=== PATIENT | male | born 1940 | race Caucasian/White ===

== ENCOUNTER 2016-07-15 08:19 | Inpatient (IN) | payer MEDICARE, BC ==
[2016-07-15] MEDS ORDERED: ASPIRIN 81 MG CHEW PO STA (08:29)
[2016-07-15] MEDS ORDERED: NITROGLYCERIN SL TABS 0.4 MG TAB SUBLINGUAL STA ×3 (08:29)
--- NOTE | 2016-07-15 08:34 | ED ---
General Adult HPI - General Chief complaint: Chest Pain Stated complaint: CHEST PAIN HAS Hx Time Seen by Provider: 07/15/16 08:25 Source: patient, family, RN notes reviewed Mode of arrival: ambulatory Limitations: no limitations - History of Present Illness Initial comments: Patient is a pleasant 76-year-old male presenting to the emergency Department with chest discomfort. Onset of symptoms was around 2 AM. Symptoms seemed to worsen around 4 AM. Discomfort is currently rated as a 4/10. Discomfort is described as pressure. Patient does have some associated dyspnea. Patient was nauseated earlier however this has resolved. Patient denies diaphoresis however states he was sweaty earlier. No history of similar symptoms previously however patient does have a cardiac history. No leg pain or swelling. No cough or fever. - Related Data Home Medications Medication Instructions Recorded Confirmed Enalapril [Vasotec] 10 mg PO DAILY 09/26/13 07/15/16 Metoclopramide [Reglan] 5 mg PO TID 09/26/13 07/15/16 Ranitidine HCl [Zantac] 150 mg PO BID 09/26/13 07/15/16 Melatonin 10 mg PO HS 07/15/16 07/15/16 Tadalafil [Cialis] 5 mg PO DAILY 07/15/16 07/15/16 Vit C/E/Zn/Coppr/Lutein/Zeaxan 2 cap PO DAILY 07/15/16 07/15/16 [Preservision Areds 2 Softgel] Allergies Allergy/AdvReac Type Severity Reaction Status Date / Time No Known Allergies Allergy Verified 07/15/16 09:20 Review of Systems ROS Statement: Those systems with pertinent positive or pertinent negative responses have been documented in the HPI. ROS Other: All systems not noted in ROS Statement are negative. Constitutional: Denies: fever Eyes: Denies: eye pain ENT: Denies: ear pain Respiratory: Reports: dyspnea Cardiovascular: Reports: chest pain Endocrine: Denies: fatigue Gastrointestinal: Denies: abdominal pain Genitourinary: Denies: dysuria Musculoskeletal: Denies: back pain Skin: Denies: rash Neurological: Denies: weakness Past Medical History Past Medical History: CVA/TIA, GERD/Reflux, Hypertension, Prostate Disorder History of Any Multi-Drug Resistant Organisms: None Reported Past Surgical History: Appendectomy, Orthopedic Surgery Additional Past Surgical History / Comment(s): teeth extractions Past Psychological History: Depression Smoking Status: Former smoker Past Alcohol Use History: None Reported Past Drug Use History: None Reported General Exam Limitations: no limitations General appearance: alert, in no apparent distress Head exam: Present: atraumatic Eye exam: Present: normal appearance, PERRL ENT exam: Present: normal oropharynx Neck exam: Present: normal inspection Respiratory exam: Present: normal lung sounds bilaterally Cardiovascular Exam: Present: regular rate, normal rhythm GI/Abdominal exam: Present: soft. Absent: distended, tenderness Extremities exam: Present: normal inspection. Absent: pedal edema, calf tenderness Neurological exam: Present: alert Psychiatric exam: Present: normal affect, normal mood Skin exam: Absent: rash Course Vital Signs 07/15/16 07/15/16 07/15/16 08:26 08:32 09:22 Temperature 99.1 F Pulse Rate 84 84 Pulse Rate [ 81 Bilateral Radial] Respiratory 18 15 Rate Blood Pressure 161/68 127/59 O2 Sat by Pulse 94 L 95 Oximetry 07/15/16 09:40 Temperature Pulse Rate 82 Pulse Rate [ Bilateral Radial] Respiratory 18 Rate Blood Pressure 112/54 O2 Sat by Pulse 95 Oximetry EKG Findings - EKG Comments: EKG Findings:: Normal sinus rhythm at 83. Normal intervals. Normal axis. Normal QRS. No acute ST change. Medical Decision Making - Medical Decision Making Patient reevaluated and symptom-free following a glycerin. Patient and family updated on results and plan. Case discussed in detail with Dr. Tirado, who will admit for Dr. Bond. Admission orders written. Consult placed for cardiology. IV heparin started. - Lab Data Result diagrams: 07/15/16 08:46 07/15/16 08:46 Lab Results 07/15/16 07/15/16 07/15/16 Range/Units 08:46 08:46 08:46 WBC 12.2 H (3.8-10.6) k/uL RBC 4.94 (4.30-5.90) m/uL Hgb 14.7 (13.0-17.5) gm/dL Hct 45.3 (39.0-53.0) % MCV 91.6 (80.0-100.0) fL MCH 29.8 (25.0-35.0) pg MCHC 32.5 (31.0-37.0) g/dL RDW 12.9 (11.5-15.5) % Plt Count 252 (150-450) k/uL Neutrophils % 88 % Lymphocytes % 7 % Monocytes % 4 % Eosinophils % 1 % Basophils % 0 % Neutrophils # 10.8 H (1.3-7.7) k/uL Lymphocytes # 0.8 L (1.0-4.8) k/uL Monocytes # 0.4 (0-1.0) k/uL Eosinophils # 0.1 (0-0.7) k/uL Basophils # 0.0 (0-0.2) k/uL PT (9.0-12.0) sec INR (<1.1) APTT (22.0-30.0) sec Sodium 143 (137-145) mmol/L Potassium 3.9 (3.5-5.1) mmol/L Chloride 103 (98-107) mmol/L Carbon Dioxide 26 (22-30) mmol/L Anion Gap 14 mmol/L BUN 18 (9-20) mg/dL Creatinine 1.40 H (0.66-1.25) mg/dL Est GFR (MDRD) Af Amer >60 (>60 ml/min/1.73 sqM) Est GFR (MDRD) Non-Af 50 (>60 ml/min/1.73 sqM) Glucose 156 H (74-99) mg/dL Calcium 9.3 (8.4-10.2) mg/dL Magnesium 1.6 (1.6-2.3) mg/dL Total Bilirubin 0.7 (0.2-1.3) mg/dL AST 26 (17-59) U/L ALT 39 (21-72) U/L Alkaline Phosphatase 81 (38-126) U/L Total Creatine Kinase 132 (55-170) U/L CK-MB (CK-2) 1.9 (0.0-2.4) ng/mL CK-MB (CK-2) Rel Index 1.4 Troponin I <0.012 (0.000-0.034) ng/mL NT-Pro-B Natriuret Pep pg/mL Total Protein 7.0 (6.3-8.2) g/dL Albumin 4.0 (3.5-5.0) g/dL 07/15/16 07/15/16 Range/Units 08:46 08:46 WBC (3.8-10.6) k/uL RBC (4.30-5.90) m/uL Hgb (13.0-17.5) gm/dL Hct (39.0-53.0) % MCV (80.0-100.0) fL MCH (25.0-35.0) pg MCHC (31.0-37.0) g/dL RDW (11.5-15.5) % Plt Count (150-450) k/uL Neutrophils % % Lymphocytes % % Monocytes % % Eosinophils % % Basophils % % Neutrophils # (1.3-7.7) k/uL Lymphocytes # (1.0-4.8) k/uL Monocytes # (0-1.0) k/uL Eosinophils # (0-0.7) k/uL Basophils # (0-0.2) k/uL PT 11.3 (9.0-12.0) sec INR 1.1 (<1.1) APTT 21.7 L (22.0-30.0) sec Sodium (137-145) mmol/L Potassium (3.5-5.1) mmol/L Chloride (98-107) mmol/L Carbon Dioxide (22-30) mmol/L Anion Gap mmol/L BUN (9-20) mg/dL Creatinine (0.66-1.25) mg/dL Est GFR (MDRD) Af Amer (>60 ml/min/1.73 sqM) Est GFR (MDRD) Non-Af (>60 ml/min/1.73 sqM) Glucose (74-99) mg/dL Calcium (8.4-10.2) mg/dL Magnesium (1.6-2.3) mg/dL Total Bilirubin (0.2-1.3) mg/dL AST (17-59) U/L ALT (21-72) U/L Alkaline Phosphatase (38-126) U/L Total Creatine Kinase (55-170) U/L CK-MB (CK-2) (0.0-2.4) ng/mL CK-MB (CK-2) Rel Index Troponin I (0.000-0.034) ng/mL NT-Pro-B Natriuret Pep 72 pg/mL Total Protein (6.3-8.2) g/dL Albumin (3.5-5.0) g/dL - Radiology Data Radiology results: image reviewed (This x-ray shows no acute process) Critical Care Time Critical Care Time: Yes Total Critical Care Time: 31 Disposition Clinical Impression: Unstable angina pectoris Disposition: ADMITTED IP TO THIS HOSP
[2016-07-15 09:06] LABS: Basophils % (A) 0 %; Eosinophils # (A) 0.1 k/uL (0-0.7); Eosinophils % (A) 1 %; HCT 45.3 % (39.0-53.0); HDW 2.71; HGB 14.7 gm/dL (13.0-17.5); Luc # (Auto) 0.07; Luc % (Auto) 1; Lymphocytes # (A) 0.8 k/uL (1.0-4.8); Lymphocytes % (A) 7 %; MCH 29.8 pg (25.0-35.0); MCHC 32.5 g/dL (31.0-37.0); MCV 91.6 fL (80.0-100.0); Mean Platelet Volume 6.4; Monocytes # (A) 0.4 k/uL (0-1.0); Monocytes % (A) 4 %; Neutrophils # (A) 10.8 k/uL (1.3-7.7); Neutrophils % (A) 88 %; RBC 4.94 m/uL (4.30-5.90); RDW 12.9 % (11.5-15.5); WBC 12.2 k/uL (3.8-10.6); WBC (Perox) 12.39
[2016-07-15 09:11] LABS: ALT 39 U/L (21-72); AST 26 U/L (17-59); Alkaline Phosphatase 81 U/L (38-126); Anion Gap 14 mmol/L; Blood Urea Nitrogen 18 mg/dL (9-20); Calcium 9.3 mg/dL (8.4-10.2); Carbon Dioxide 26 mmol/L (22-30); Chloride 103 mmol/L (98-107); Glucose 156 mg/dL (74-99); Magnesium 1.6 mg/dL (1.6-2.3); Non-African American GFR(MDRD) 50 (>60 ml/min/1.73 sqM); Potassium 3.9 mmol/L (3.5-5.1); Sodium 143 mmol/L (137-145); Total Bilirubin 0.7 mg/dL (0.2-1.3)
--- NOTE | 2016-07-15 09:11 | XR ---
EXAMINATION TYPE: XR chest 2V DATE OF EXAM: 07/15/2016 9:04 AM COMPARISON: NONE HISTORY: Shortness of breath TECHNIQUE: Frontal and lateral views of the chest are obtained. FINDINGS: Scattered senescent parenchymal changes noted. Hyperinflation compatible with COPD. No evidence for infiltrate. No evidence for atelectasis. Heart size is stable. Mediastinal structures are stable and grossly unremarkable. No evidence for hilar prominence. Degenerative changes dorsal spine. IMPRESSION: 1. No evidence for acute pulmonary disease.
[2016-07-15 09:21] LABS: INR 1.1 (<1.1); Prothrombin Time 11.3 sec (9.0-12.0)
[2016-07-15 09:26] LABS: Partial Thromboplastin Time 21.7 sec (22.0-30.0)
[2016-07-15 09:31] LABS: Creatine Kinase 132 U/L (55-170)
[2016-07-15 09:43] LABS: Creatine Kinase MB 1.9 ng/mL (0.0-2.4); Troponin I <0.012 ng/mL (0.000-0.034)
[2016-07-15] MEDS ORDERED: HEPARIN SODIUM,PORCINE 5,000 UNIT/ML 1 ML VIAL IV PRN (10:22)
[2016-07-15] MEDS ORDERED: HEPARIN SODIUM,PORCINE 5,000 UNIT/ML 1 ML VIAL IV ONE (10:22)
[2016-07-15] MEDS: HEPARIN SODIUM,PORCINE/D5W PMX 25,000 UNIT in DEXTROSE/WATER 1 500ML.BAG IV SCH (11:08)
[2016-07-15 16:32] LABS: Creatine Kinase 162 U/L (55-170)
[2016-07-15 16:43] LABS: Creatine Kinase MB 1.2 ng/mL (0.0-2.4); Troponin I <0.012 ng/mL (0.000-0.034)
[2016-07-15] MEDS ORDERED: MAG HYDROX/AL HYDROX/SIMETH 30 ML CUP PO PRN (16:51)
[2016-07-15] MEDS ORDERED: ACETAMINOPHEN TAB 325 MG TAB PO PRN (17:05)
[2016-07-15] MEDS: PANTOPRAZOLE 40 MG TABLET PO SCH (17:32)
--- NOTE | 2016-07-15 17:50 | P.HPIM ---
History of Present Illness H&P Date: 07/15/16 76-year-old gentleman who is in good health until 2 AM the night before admission comes in to the hospital with sudden onset upper abdominal pain/left sided chest pain. Patient has a history of hiatal hernia patient initially thought it was bloating and started belching thereafter. Patient started to have multiple episodes until 4 AM. Patient had some relief however on 6 AM patient was concern if he was cardiogenic in nature and hence came in to the hospital. Patient states the pain was self limiting. Denies any exertion with activity. Denies any exertion with movement of his shoulders or deep breathing. Patient is apparently able to walk about a mile without any difficulty in breathing or chest pain. In the ER EKG did not reveal ST-T wave changes. She does not have a history of CAD. Patient does have a family history that is consistent with the coronary disease. Remote smoking history. Currently states that his pain is noted with deep breathing. Review of Systems All systems: negative (noted in HPI) Past Medical History Past Medical History: Cancer, CVA/TIA, GERD/Reflux, Hypertension, Osteoarthritis (OA), Prostate Disorder Additional Past Medical History / Comment(s): 2013 TIA, prostate enlargement with TURP but is starting to have issues again, skin cancer with removals, DJD, arhtritis some of his fingers. History of Any Multi-Drug Resistant Organisms: None Reported Past Surgical History: Appendectomy, Joint Replacement, Orthopedic Surgery, Prostate Surgery Additional Past Surgical History / Comment(s): Total L knee arthroplasty, teeth extractions, bilateral cataract removal with lens implants, bilateral blepharoplasty, TURP, colonoscopy, skin cancer removals. Additional Past Anesthesia/Blood Transfusion Reaction / Comment(s): Pt states that after spinal anesthesia, he had severe pain down both legs for a couple days. Past Psychological History: Depression Additional Psychological History / Comment(s): Pt resides with his spouse. He in independent. Pt is a [employer] . 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 Smoking Status: Former smoker Past Alcohol Use History: None Reported Additional Past Alcohol Use History / Comment(s): Pt started smoking in 1960 and quit in 1990. Past Drug Use History: None Reported - Past Family History Father Additional Family Medical History / Comment(s): Father was pretty healthy. He in his 80's from heart disease. Mother Family Medical History: Cancer Additional Family Medical History / Comment(s): Mother had several different types of cancer. Medications and Allergies Home Medications Medication Instructions Recorded Confirmed Type Enalapril [Vasotec] 10 mg PO DAILY 09/26/13 07/15/16 History Metoclopramide [Reglan] 5 mg PO TID 09/26/13 07/15/16 History Ranitidine HCl [Zantac] 150 mg PO BID 09/26/13 07/15/16 History Melatonin 10 mg PO HS 07/15/16 07/15/16 History Tadalafil [Cialis] 5 mg PO DAILY 07/15/16 07/15/16 History Vit C/E/Zn/Coppr/Lutein/Zeaxan 2 cap PO DAILY 07/15/16 07/15/16 History [Preservision Areds 2 Softgel] Allergies Allergy/AdvReac Type Severity Reaction Status Date / Time No Known Allergies Allergy Verified 07/15/16 09:20 Physical Exam Vitals: Vital Signs Temp Pulse Pulse Resp BP BP Pulse Ox 07/15/16 16:00 16 07/15/16 15:33 98.2 F 82 18 159/70 95 07/15/16 12:00 82 18 07/15/16 11:30 98.5 F 90 18 144/77 07/15/16 11:04 98.4 F 77 15 119/61 95 07/15/16 10:53 98.3 F 80 16 113/55 97 Intake and Output 07/15/16 07/15/16 07/15/16 06:59 14:59 22:59 Other: Voiding Method Toilet # Voids 1 1 Weight 83.8 kg Patient Weight 07/16/16 06:59 Weight 83.8 kg Physical exam Gen. appearance oriented 3 in no distress Neck is supple no JVD Lungs good air entry clear to auscultation no rhonchi or wheezing Heart S1-S2 heard regular rate and rhythm no murmurs appreciated Abdomen is soft nontender no organomegaly bowel sounds are intact Neurologically cranial nerves II-12 grossly intact no focal motor or sensory deficits noted Skin no abnormalities appreciated Results CBC & Chem 7: 07/15/16 08:46 07/15/16 08:46 Thrombosis Risk Factor Assmnt - Choose All That Apply Any of the Below Risk Factors Present?: Yes Each Factor Represents 1 point: Obesity (BMI >25) Other Risk Factors: Yes Each Risk Factor Represents 2 Points: Age 61-74 years, Malignancy Other congenital or acquired thrombophilia - If yes, enter type in comment: No Thrombosis Risk Factor Assessment Total Risk Factor Score: 5 Thrombosis Risk Factor Assessment Level: High Risk Assessment and Plan Plan: #1 atypical chest pain rule out ACS #2 history of hypertension #3 remote history of smoking #4 dyslipidemia #5 history of stroke Plan Patient will be started on aspirin and statin. Continue IV fluids. Cardiology consultation. Will likely need a stress test. Blood pressures are stable. cardiac enzymes 3.
[2016-07-15] MEDS: ATORVASTATIN 40 MG TAB PO SCH (20:30)
[2016-07-15 21:34] LABS: Creatine Kinase 293 U/L (55-170)
[2016-07-15 21:47] LABS: Creatine Kinase MB 1.4 ng/mL (0.0-2.4); Troponin I <0.012 ng/mL (0.000-0.034)
[2016-07-16 06:18] LABS: Cholesterol 117 mg/dL (<200); HDL Cholesterol 53 mg/dL (40-60); Triglycerides 63 mg/dL (<150)
[2016-07-16] MEDS ORDERED: ASPIRIN 325 MG TAB PO SCH (09:00)
[2016-07-16] MEDS ORDERED: NITROGLYCERIN SL TABS 0.4 MG TAB SUBLINGUAL PRN (11:03)
[2016-07-16] MEDS ORDERED: SODIUM CHLORIDE 0.9% 1,000 ML in EMPTY BAG 1 BAG IV ONE (11:03)
[2016-07-16] MEDS ORDERED: ASPIRIN 325 MG TAB PO STA (11:03)
[2016-07-16] MEDS ORDERED: ALPRAZolam 0.5 MG TAB PO PRN (11:03)
[2016-07-16] MEDS ORDERED: ALPRAZolam 0.25 MG TAB PO PRN (11:03)
[2016-07-16] MEDS ORDERED: ATORVASTATIN 80 MG TAB PO STA (11:03)
--- NOTE | 2016-07-16 11:03 | P.CRDCN ---
History of Present Illness Consult date: 07/16/16 Requesting physician: Osiris Tirado Consult reason: chest pain Chief complaint: Chest pain History of present illness: This is a pleasant 76-year-old gentleman with history of hypertension , strong family history of premature coronary artery disease, prior CVA, GERD, who presents to the hospital with symptoms of midsternal chest pressure and heaviness. According to the patient the symptoms woke him from sleep around 2: 00 in the morning, he states they were mild at that time, had some mild belching , he thought it may be heartburn, he fell back asleep and again woke up around 4 AM with similar symptoms of pressure in the center of his chest. Patient did become diaphoretic, short of breath and mildly nauseated. He states that when he tried to take a deep breath the symptoms worsened. He denies any fever, he does state that he had an episode of chills. Denies fever. White blood cell count on arrival 12.2, low-grade temp of 99.1. Potassium 3.9, BUN 18, creatinine 1.4. Magnesium level I.6, troponins negative 3. Cholesterol 117, LDL 51, HDL 53, triglycerides 63. EKG on arrival here showed a normal sinus rhythm with nonspecific ST-T wave changes. Repeat EKG performed this morning showed normal sinus rhythm with no acute changes. At the time of my examination this morning, he is currently chest pain-free. On IV heparin. Past Medical History Past Medical History: Cancer, CVA/TIA, GERD/Reflux, Hypertension, Osteoarthritis (OA), Prostate Disorder Additional Past Medical History / Comment(s): 2014 TIA, prostate enlargement with TURP but is starting to have issues again, skin cancer with removals, DJD, arhtritis some of his fingers. History of Any Multi-Drug Resistant Organisms: None Reported Past Surgical History: Appendectomy, Joint Replacement, Orthopedic Surgery, Prostate Surgery Additional Past Surgical History / Comment(s): Total L knee arthroplasty, teeth extractions, bilateral cataract removal with lens implants, bilateral blepharoplasty, TURP, colonoscopy, skin cancer removals. Additional Past Anesthesia/Blood Transfusion Reaction / Comment(s): Pt states that after spinal anesthesia, he had severe pain down both legs for a couple days. Past Psychological History: Depression Additional Psychological History / Comment(s): Pt resides with his spouse. He in independent. Pt is a [employer] . 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 Smoking Status: Former smoker Past Alcohol Use History: None Reported Additional Past Alcohol Use History / Comment(s): Pt started smoking in 1960 and quit in 1990. Past Drug Use History: None Reported - Past Family History Father Additional Family Medical History / Comment(s): Father was pretty healthy. He in his 80's from heart disease. Mother Family Medical History: Cancer Additional Family Medical History / Comment(s): Mother had several different types of cancer. Medications and Allergies Home Medications Medication Instructions Recorded Confirmed Type Enalapril [Vasotec] 10 mg PO DAILY 09/26/13 07/15/16 History Metoclopramide [Reglan] 5 mg PO TID 09/26/13 07/15/16 History Ranitidine HCl [Zantac] 150 mg PO BID 09/26/13 07/15/16 History Melatonin 10 mg PO HS 07/15/16 07/15/16 History Tadalafil [Cialis] 5 mg PO DAILY 07/15/16 07/15/16 History Vit C/E/Zn/Coppr/Lutein/Zeaxan 2 cap PO DAILY 07/15/16 07/15/16 History [Preservision Areds 2 Softgel] Allergies Allergy/AdvReac Type Severity Reaction Status Date / Time No Known Allergies Allergy Verified 07/15/16 09:20 Physical Exam Vitals: Vital Signs Temp Pulse Pulse Resp BP BP Pulse Ox 07/16/16 07:41 97.9 F 72 18 135/69 97 07/16/16 04:00 97.5 F L 65 16 125/64 95 07/16/16 00:00 97.8 F 84 16 136/75 95 07/15/16 20:00 16 07/15/16 19:32 98.2 F 76 16 136/62 93 L 07/15/16 16:00 16 07/15/16 15:33 98.2 F 82 18 159/70 95 07/15/16 12:00 82 18 07/15/16 11:30 98.5 F 90 18 144/77 07/15/16 11:04 98.4 F 77 15 119/61 95 07/15/16 10:53 98.3 F 80 16 113/55 97 Intake and Output 07/15/16 07/16/16 07/16/16 22:59 06:59 14:59 Intake Total 180 Balance 180 Intake: Oral 180 Other: Voiding Method Toilet Toilet # Voids 1 1 PHYSICAL EXAMINATION: HEENT: Head is atraumatic, normocephalic. Pupils equal, round. Neck is supple. There is no elevated jugular venous pressure. HEART EXAMINATION: Heart S1 and S2 with soft systolic murmur is heard. CHEST EXAMINATION: Lungs are clear to auscultation and precussion. No chest wall tenderness is noted on palpation or with deep breathing. ABDOMEN: Soft, nontender. Bowel sounds are heard. No organomegaly noted. EXTREMITIES: 2+ peripheral pulses with no evidence of peripheral edema and no calf tenderness noted. NEUROLOGIC patient is awake, alert and oriented -3. . Results 07/16/16 05:29 07/15/16 08:46 Cardiac Enzymes 07/15/16 07/15/16 Range/Units 15:26 20:44 CK-MB (CK-2) 1.2 1.4 (0.0-2.4) ng/mL Troponin I <0.012 <0.012 (0.000-0.034) ng/mL Coagulation 07/15/16 07/16/16 Range/Units 17:36 05:29 APTT 50.7 H 66.2 H (22.0-30.0) sec Lipids 07/16/16 Range/Units 05:29 Triglycerides 63 (<150) mg/dL Cholesterol 117 (<200) mg/dL HDL Cholesterol 53 (40-60) mg/dL CBC 07/16/16 Range/Units 05:29 Plt Count 197 (150-450) k/uL Current Medications Generic Name Dose Route Start Last Admin Trade Name Freq PRN Reason Stop Dose Admin Acetaminophen 650 mg 07/15/16 17:05 07/15/16 17:32 Tylenol Tab PO 650 mg Q4HR PRN Administration Fever and/ or MILD Pain Al Hydroxide/Mg Hydroxide 30 ml 07/15/16 16:51 07/15/16 17:32 Maalox PO 30 ml Q4HR PRN Administration GI Upset Aspirin 81 mg 07/16/16 09:00 Aspirin PO DAILY LIZANDRO Atorvastatin Calcium 40 mg 07/15/16 21:00 07/15/16 20:30 Lipitor PO 40 mg HS LIZANDRO Administration Heparin Sodium (Porcine) 0 unit 07/15/16 10:22 Heparin IV Q6HR PRN Low PTT Protocol Heparin Sodium/Dextrose 25,000 500 mls @ 19.59 mls/hr 07/15/16 10:30 11:08 unit/ IV Solution IV 12 units/kg/hr .Q24H LIZANDRO 19.59 mls/hr Protocol Administration 12 UNITS/KG/HR Sodium Chloride 1,000 mls @ 75 mls/hr 07/16/16 10:45 Saline 0.9% IV .[id number] LIZANDRO Lisinopril 20 mg 07/16/16 09:00 Zestril PO DAILY LIZANDRO Pantoprazole Sodium 40 mg 07/15/16 17:30 07/15/16 17:32 Protonix PO 40 mg AC-BID LIZANDRO Administration Sodium Chloride 10 ml 07/15/16 21:00 07/16/16 05:31 Saline Flush IV Not Given BID LIZANDRO Intake and Output 07/15/16 07/16/16 07/16/16 22:59 06:59 14:59 Intake Total 180 Balance 180 Intake: Oral 180 Other: Voiding Method Toilet Toilet # Voids 1 1 07/16/16 05:29 EKG Interpretations (text) EKG shows a normal sinus rhythm with no acute changes. Assessment and Plan Plan: Assessment and plan #1 chest pressure and heaviness with some atypical features, troponins negative 3. EKG shows a normal sinus rhythm with no acute changes. Low-grade temperature of 99.1 on arrival, WBC 12.2. #2 hypertension #3 family history of premature coronary artery disease #4 prior CVA #5 GERD #6 mild increase in creatinine, 1.4 Plan We will obtain an echocardiogram with Doppler study. Increase IV fluids to 75 mL per hour. We will discontinue the IV heparin, discontinue Nitropaste. Patient has been advised to undergo cardiac catheterization, the risks and the benefits were explained to him and his in detail, this will be performed tomorrow by Dr. VC Julio. DNP note has been reviewed, I agree with a documented findings and plan of care. Patient was seen and examined.
[2016-07-16] MEDS: LISINOPRIL 20 MG TAB PO SCH (11:10)
[2016-07-16] MEDS: ASPIRIN 81 MG CHEW PO SCH (11:10)
[2016-07-16] MEDS: PANTOPRAZOLE 40 MG TABLET PO SCH ×2 (11:10→18:46)
[2016-07-16] MEDS: SODIUM CHLORIDE 0.9% 1,000 ML IV SCH (11:11)
[2016-07-16] MEDS: ATORVASTATIN 40 MG TAB PO SCH (12:02)
--- NOTE | 2016-07-16 18:20 | P.PN ---
Subjective 76-year-old gentleman who is in good health until 2 AM the night before admission comes in to the hospital with sudden onset upper abdominal pain/left sided chest pain. Patient has a history of hiatal hernia patient initially thought it was bloating and started belching thereafter. Patient started to have multiple episodes until 4 AM. Patient had some relief however on 6 AM patient was concern if he was cardiogenic in nature and hence came in to the hospital. Patient states the pain was self limiting. Denies any exertion with activity. Denies any exertion with movement of his shoulders or deep breathing. Patient is apparently able to walk about a mile without any difficulty in breathing or chest pain. In the ER EKG did not reveal ST-T wave changes. She does not have a history of CAD. Patient does have a family history that is consistent with the coronary disease. Remote smoking history. Currently states that his pain is noted with deep breathing. 07/16/16 No new overnight events Denies further episodes No cp, SANDRA, n/v, Abdominal pain reported. Objective - Vital Signs Vital signs: Vital Signs Temp 97.5 F L 07/16/16 16:00 Pulse 66 07/16/16 16:00 Resp 18 07/16/16 16:34 BP 142/67 07/16/16 16:00 Pulse Ox 98 07/16/16 16:00 Intake & Output 07/15/16 07/16/16 07/16/16 18:59 06:59 18:59 Intake Total 180 960 Balance 180 960 Weight 83.8 kg Intake: Oral 180 960 Other: Voiding Method Toilet Toilet # Voids 1 1 - Constitutional General appearance: Present: average body habitus - EENT Eyes: Present: PERRLA - Neck Neck: Present: normal ROM - Respiratory Respiratory: bilateral: CTA - Cardiovascular Rhythm: regular Heart sounds: normal: S1, S2 - Gastrointestinal General gastrointestinal: Present: normal bowel sounds, soft. Absent: organomegaly - Neurologic Neurologic: Present: CNII-XII intact. Absent: focal deficits - Musculoskeletal Musculoskeletal: Present: gait normal - Psychiatric Psychiatric: Present: A&O x's 3, appropriate affect - Labs CBC & Chem 7: 07/16/16 05:29 07/15/16 08:46 Labs: Abnormal Lab Results - Last 24 Hours (Table) 07/15/16 07/15/16 07/16/16 Range/Units 17:36 20:44 05:29 APTT 50.7 H 66.2 H (22.0-30.0) sec Total Creatine Kinase 293 H (55-170) U/L Assessment and Plan Plan: #1 atypical chest pain rule out ACS #2 history of hypertension #3 remote history of smoking #4 dyslipidemia #5 history of stroke Plan Patient will be started on aspirin and statin. To undergo a cardiac cath octaviano. Blood pressures are stable. cardiac enzymes 3. were negative. bp stable.
[2016-07-17] MEDS ORDERED: ATORVASTATIN 40 MG TAB PO STA (05:19)
[2016-07-17] MEDS: SODIUM CHLORIDE 0.9% 1,000 ML IV SCH (05:20)
[2016-07-17] MEDS ORDERED: ASPIRIN 325 MG TAB PO STA (06:51)
[2016-07-17] MEDS: ASPIRIN 81 MG CHEW PO SCH (06:52)
[2016-07-17] MEDS: PANTOPRAZOLE 40 MG TABLET PO SCH ×2 (06:53→06:54)
[2016-07-17] MEDS: LISINOPRIL 20 MG TAB PO SCH (06:54)
[2016-07-17 07:26] LABS: Mean Platelet Volume 6.8
[2016-07-17] MEDS: HEPARIN SODIUM,PORCINE/D5W PMX 25,000 UNIT in DEXTROSE/WATER 1 500ML.BAG IV SCH (07:54)
--- NOTE | 2016-07-17 09:46 | ECHOF ---
Referral Reason:chest pain MEASUREMENTS -------- HEIGHT: 167.6 cm WEIGHT: 83.5 kg BP: 135/69 RVIDd: 3.3 cm (< 3.3) IVSd: 1.1 cm (0.6 - 1.1) LVIDd: 4.4 cm (3.9 - 5.3) LVPWd: 1.2 cm (0.6 - 1.1) IVSs: 1.6 cm LVIDs: 2.6 cm LVPWs: 1.6 cm LA Diam: 3.9 cm (2.7 - 3.8) LAESV Index (A-L): 19.88 ml/m Ao Diam: 3.0 cm (2.0 - 3.7) AV Cusp: 2.0 cm (1.5 - 2.6) MV EXCURSION: 14.967 mm (> 18.000) MV EF SLOPE: 87 mm/s (70 - 150) EPSS: 0.4 cm MV E Victoriano: 1.07 m/s MV DecT: 269 ms MV A Victoriano: 0.97 m/s MV E/A Ratio: 1.10 RAP: 5.00 mmHg RVSP: 38.12 mmHg FINDINGS -------- Sinus rhythm. This was a technically good study. The left ventricular size is normal. There is borderline concentric left ventricular hypertrophy. Overall left ventricular systolic function is normal with, an EF between 60 - 65 %. The right ventricle is mildly enlarged. Normal LA size by volume 22+/-6 ml/m2. The right atrium is normal in size. There is mild aortic valve sclerosis. There is trace mitral regurgitation. Mild tricuspid regurgitation present. There is mild pulmonary hypertension. The right ventricular systolic pressure, as measured by Doppler, is 38.12mmHg. The pulmonic valve is normal. The aortic root size is normal. Normal inferior vena cava with normal inspiratory collapse consistent with estimated right atrial pressure of 5 mmHg. There is no pericardial effusion. CONCLUSIONS -------- 1. Sinus rhythm. 2. There is trace mitral regurgitation. 3. Mild tricuspid regurgitation present. 4. There is mild pulmonary hypertension. 5. The right ventricular systolic pressure, as measured by Doppler, is 38.12mmHg. 6. The pulmonic valve is normal. 7. The aortic root size is normal. 8. Normal inferior vena cava with normal inspiratory collapse consistent with estimated right atrial pressure of 5 mmHg. 9. There is no pericardial effusion. 10. This was a technically good study. 11. The left ventricular size is normal. 12. There is borderline concentric left ventricular hypertrophy. 13. Overall left ventricular systolic function is normal with, an EF between 60 - 65 %. 14. The right ventricle is mildly enlarged. 15. Normal LA size by volume 22+/-6 ml/m2. 16. The right atrium is normal in size. 17. There is mild aortic valve sclerosis. DAIRY PROCESSING SUPERVISOR: Steffany Jaimes RDCS
[2016-07-17] MEDS ORDERED: fentaNYL (PF) 50 MCG/ML 2 ML AMP IV ONE (11:43)
[2016-07-17] MEDS ORDERED: IV FLUID CONTINUATION 1,000 ML IV ONE (11:43)
[2016-07-17] MEDS ORDERED: MIDAZOLAM 2 MG/2 ML VIAL IV ONE (11:43)
[2016-07-17] MEDS ORDERED: LIDOCAINE 2% INJ 20 MG/ML SQ ONE (11:46)
[2016-07-17] MEDS ORDERED: BIVALIRUDIN BOLUS 250 MG/50 ML IV ONE (12:09)
[2016-07-17] MEDS ORDERED: BIVALIRUDIN 250 MG in SODIUM CHLORIDE 0.9% 50 ML IV ONE (12:10)
[2016-07-17] MEDS ORDERED: TICAGRELOR 90 MG TAB PO ONE (12:18)
[2016-07-17] MEDS ORDERED: IOHEXOL 350 MG/ML 100 ML BOTTLE INJ ONE (12:43)
[2016-07-17] MEDS ORDERED: RX INFO: IV CONTRAST WAS GIVEN 1 EACH MISC MISCELLANE PRN (12:54)
[2016-07-17] MEDS ORDERED: ZOLPIDEM 5 MG TAB PO PRN (12:54)
[2016-07-17] MEDS ORDERED: ATROPINE SULFATE 0.1 MG/ML 10ML SYRINGE IV PRN (12:54)
[2016-07-17] MEDS ORDERED: MAG HYDROX/AL HYDROX/SIMETH 30 ML CUP PO PRN (12:54)
[2016-07-17] MEDS ORDERED: NITROGLYCERIN SL TABS 0.4 MG TAB SUBLINGUAL PRN (12:54)
[2016-07-17] MEDS ORDERED: SODIUM CHLORIDE 0.9% 1,000 ML IV SCH (13:00)
[2016-07-17] MEDS: ATORVASTATIN 40 MG TAB PO SCH (20:42)
[2016-07-17] MEDS: TICAGRELOR 90 MG TAB PO SCH (20:42)
--- NOTE | 2016-07-17 21:07 | CC ---
DATE OF SERVICE: Mr. Nevarez is a 76-year-old gentleman who was admitted to the hospital with symptoms suggestive of unstable angina syndrome. Because of the prolonged episode of chest pain at rest, patient was advised cardiac catheterization for definitive diagnosis. PROCEDURE: The right groin was prepped and draped in the usual manner and the skin was infiltrated with 2% Xylocaine. The right femoral artery was entered using Seldinger technique. A #6 [place] sheath was placed in. Left ventricular pressures were obtained. Patient tolerated the procedure well. The total sedation time was 12 minutes. HEMODYNAMICS: Left ventricular end-diastolic pressure was 12 mmHg prior to angiography, and no gradient was noted across the aortic valve. SELECTIVE CORONARY ANGIOGRAPHY: LEFT MAIN: Left main coronary artery is normal and patent. LEFT ANTERIOR DESCENDING CORONARY ARTERY: LAD is a good caliber blood vessel and the mid LAD has about 60% stenosis. CIRCUMFLEX CORONARY ARTERY: Circumflex coronary artery is normal. RIGHT CORONARY ARTERY: Right coronary artery is calcified and proximally has a ( ) there are two areas of stenosis of 60% and 80%. FINAL IMPRESSION: This patient has a proximal 60% stenosis in the RCA and there is another stenosis of about 80%. Mid left anterior descending coronary artery has an areas of 60% stenosis. Circumflex coronary artery is normal. RECOMMENDATIONS: Films were reviewed with Dr. Henry. We will proceed with stent to the RCA and subsequently FFR of the LAD will be done and depending upon the results, further recommendations will be made.
--- NOTE | 2016-07-17 21:11 | PTCA ---
DATE OF SERVICE: July 17, 2016 PERFORMING PHYSICIAN: Sarbjit Henry M.D. string winding machine operator. PROCEDURE PERFORMED: 1. Successful stenting of the proximal right coronary artery using a 3.0 x 23 mm Xience ZEESHAN which was post dilated using a 3.25 mm noncompliant balloon with a good angiographic results. 2. Fractional flow reserve, FFR of the left anterior descending artery. INDICATION: This is a pleasant 76-year-old male patient who presented to the hospital with chest discomfort consistent with unstable angina. He underwent a heart catheterization by Dr. Isa Julio and was found to have severe disease involving the proximal RCA with intermediate disease involving the proximal and mid LAD. The decision was made toward percutaneous coronary intervention of the RCA lesion and FFR of the LAD lesion. Approach: Right common femoral artery. COMPLICATIONS: None. Level of sedation: Moderate with sedation length of about 30 minutes. PROCEDURE DESCRIPTION: After diagnostic heart catheterization was performed by Dr. Julio and after reviewing the angiogram, we decided to pursue with angioplasty of the RCA and FFR of the LAD. Anticoagulation was initiated using Angiomax. Subsequently, I took JR4 guide and the RCA was engaged. A Whisper wire was used to wire the right coronary artery. Subsequently, I did predilatation using 2.5 x 12 mm 50 mm balloon and then I deployed 3.0 x 23 mm Xience ZEESHAN, where the stent was positioned under fluoroscopy guidance and deployed under 14 atmospheres for 20 seconds. I postdilated using 3.25 mm NC balloon. The following angiogram showed good angiographic results. Subsequently ( ). FFR of the LAD : After that, I did an FFR of the LAD, where I did zeroing the Doppler wire and then equalization between the Doppler wire and the guiding catheter, which was JL4 guiding catheter. We did an FFR without IV adenosine infusion because the lesion came in to be ischemic even without infusion of adenosine. The number was 0.66. CONCLUSION: 1. Successful stenting of the proximal right coronary artery using 3.20 x 15 x 23 mm Xience ZEESHAN with a good angiographic results. 2. Abnormal FFR of the LAD and that was 0.66. POSTPROCEDURE MANAGEMENT: The patient will be scheduled to undergo a PTCA of the LAD.
[2016-07-18] MEDS: PANTOPRAZOLE 40 MG TABLET PO SCH ×2 (06:26→17:53)
[2016-07-18 06:59] LABS: Basophils # (A) 0.1 k/uL (0-0.2); Basophils % (A) 1 %; CH 31.3; CHCM 34.4; Eosinophils # (A) 0.4 k/uL (0-0.7); Eosinophils % (A) 4 %; HCT 40.8 % (39.0-53.0); HGB 13.8 gm/dL (13.0-17.5); Luc # (Auto) 0.23; Luc % (Auto) 3; Lymphocytes # (A) 1.7 k/uL (1.0-4.8); Lymphocytes % (A) 21 %; MCH 30.9 pg (25.0-35.0); MCHC 33.7 g/dL (31.0-37.0); MCV 91.5 fL (80.0-100.0); Mean Platelet Volume 7.3; Monocytes # (A) 0.6 k/uL (0-1.0); Monocytes % (A) 8 %; Neutrophils % (A) 63 %; RBC 4.46 m/uL (4.30-5.90); WBC (Perox) 8.13
[2016-07-18 07:13] LABS: Anion Gap 9 mmol/L; Blood Urea Nitrogen 21 mg/dL (9-20); Calcium 9.1 mg/dL (8.4-10.2); Carbon Dioxide 25 mmol/L (22-30); Chloride 109 mmol/L (98-107); Glucose 102 mg/dL (74-99); Non-African American GFR(MDRD) 50 (>60 ml/min/1.73 sqM); Potassium 4.3 mmol/L (3.5-5.1); Sodium 143 mmol/L (137-145)
[2016-07-18] MEDS: LISINOPRIL 20 MG TAB PO SCH (08:17)
[2016-07-18] MEDS: ASPIRIN 81 MG CHEW PO SCH (08:17)
[2016-07-18] MEDS: TICAGRELOR 90 MG TAB PO SCH ×2 (08:18→20:19)
--- NOTE | 2016-07-18 17:15 | P.PN ---
Subjective 76-year-old gentleman who is in good health until 2 AM the night before admission comes in to the hospital with sudden onset upper abdominal pain/left sided chest pain. Patient has a history of hiatal hernia patient initially thought it was bloating and started belching thereafter. Patient started to have multiple episodes until 4 AM. Patient had some relief however on 6 AM patient was concern if he was cardiogenic in nature and hence came in to the hospital. Patient states the pain was self limiting. Denies any exertion with activity. Denies any exertion with movement of his shoulders or deep breathing. Patient is apparently able to walk about a mile without any difficulty in breathing or chest pain. In the ER EKG did not reveal ST-T wave changes. She does not have a history of CAD. Patient does have a family history that is consistent with the coronary disease. Remote smoking history. Currently states that his pain is noted with deep breathing. 07/16/16 No new overnight events Denies further episodes No cp, DANIEL, n/v, Abdominal pain reported. 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 07/18/16 Denies cp , daniel, abdominal pain, groin pain or numbness in his right lower ext. Objective - Vital Signs Vital signs: Vital Signs Temp 97.7 F 07/18/16 15:57 Pulse 68 07/18/16 15:57 Resp 18 07/18/16 15:57 BP 137/68 07/18/16 15:57 Pulse Ox 97 07/18/16 15:57 Intake & Output 07/17/16 07/18/16 07/18/16 18:59 06:59 18:59 Intake Total 200 300 920 Output Total 3 Balance 200 300 917 Weight 82.2 kg Intake: Intake, IV Titration 300 Amount Sodium Chloride 0.9% 1, 300 000 ml @ 100 mls/hr IV . Q10H [facility] Rx#:[id number] Oral 200 920 Output: Urine 3 Other: Voiding Method Toilet Toilet - Constitutional General appearance: Present: average body habitus - EENT Eyes: Present: PERRLA - Neck Neck: Present: normal ROM - Respiratory Respiratory: bilateral: CTA, negative: rales, rhonchi, wheezing - Cardiovascular Rhythm: regular Heart sounds: normal: S1, S2 - Gastrointestinal General gastrointestinal: Present: normal bowel sounds, soft. Absent: distended , tenderness - Integumentary Integumentary: Present: normal - Neurologic Neurologic: Present: CNII-XII intact. Absent: focal deficits - Musculoskeletal Musculoskeletal: Present: gait normal, strength equal bilaterally - Psychiatric Psychiatric: Present: A&O x's 3, appropriate affect - Labs CBC & Chem 7: 07/18/16 06:39 07/18/16 06:39 Labs: Abnormal Lab Results - Last 24 Hours (Table) 07/18/16 Range/Units 06:39 Chloride 109 H (98-107) mmol/L BUN 21 H (9-20) mg/dL Creatinine 1.40 H (0.66-1.25) mg/dL Glucose 102 H (74-99) mg/dL Assessment and Plan Plan: #1 CAD with PCI to the RCA #2 history of hypertension #3 remote history of smoking #4 dyslipidemia #5 history of stroke Plan RCA stent Will need to be brought back in 2 weeks for left coronary intervention vascular check telemetry monitering Likely dc home in the next 24 hrs No overnight events on the moniter.
--- NOTE | 2016-07-18 19:59 | P.PN ---
Subjective This patient underwent a cardiac catheterization yesterday. Patient had a stent to the RCA patient also has a moderate to severe disease in the mid LAD he would be considered for stent to the LAD later on patient's right groin is normal. Denies any chest pain or shortness of breath. Objective - Vital Signs Vital signs: Vital Signs Temp 97.7 F 07/18/16 15:57 Pulse 68 07/18/16 15:57 Resp 18 07/18/16 15:57 BP 137/68 07/18/16 15:57 Pulse Ox 97 07/18/16 15:57 Intake & Output 07/18/16 07/18/16 07/19/16 06:59 18:59 07:59 Intake Total 300 1100 Output Total 3 Balance 300 1097 Weight 82.2 kg Intake: Intake, IV Titration 300 Amount Sodium Chloride 0.9% 1, 300 000 ml @ 100 mls/hr IV . Q10H [facility] Rx#:[id number] Oral 1100 Output: Urine 3 Other: Voiding Method Toilet Toilet - Exam Patient is comfortable. Vital signs are reviewed. Heart. First and second heart sounds are normal. Lungs clinically clear to auscultation and percussion. Monitor strip does not show any arrhythmia. - Labs CBC & Chem 7: 07/18/16 06:39 07/18/16 06:39 Labs: Abnormal Lab Results - Last 24 Hours (Table) 07/18/16 Range/Units 06:39 Chloride 109 H (98-107) mmol/L BUN 21 H (9-20) mg/dL Creatinine 1.40 H (0.66-1.25) mg/dL Glucose 102 H (74-99) mg/dL Assessment and Plan Plan: Patient is stable status post stent to the RCA. He will be ambulated. Patient can be discharged tomorrow.
[2016-07-18] MEDS: ATORVASTATIN 40 MG TAB PO SCH (20:18)
[2016-07-18] MEDS: METOPROLOL TARTRATE 25 MG TAB PO SCH (20:18)
[2016-07-19] MEDS: PANTOPRAZOLE 40 MG TABLET PO SCH (06:22)
[2016-07-19 08:32] VITALS: TEMP 97.1
[2016-07-19] MEDS: ASPIRIN 81 MG CHEW PO SCH (08:37)
[2016-07-19] MEDS: LISINOPRIL 20 MG TAB PO SCH (08:37)
[2016-07-19] MEDS: TICAGRELOR 90 MG TAB PO SCH (08:37)
[2016-07-19] MEDS: METOPROLOL TARTRATE 25 MG TAB PO SCH (08:37)
[2016-07-19 11:26] VITALS: BP 112/62; PULSE 62; RESP 16
--- NOTE | 2016-07-19 17:56 | P.DS ---
Providers Date of admission: 07/17/16 15:09 Attending physician: Osiris Tirado Primary care physician: [facility] Course: 76-year-old gentleman who is in good health until 2 AM the night before admission comes in to the hospital with sudden onset upper abdominal pain/left sided chest pain. Patient has a history of hiatal hernia patient initially thought it was bloating and started belching thereafter. Patient started to have multiple episodes until 4 AM. Patient had some relief however on 6 AM patient was concern if he was cardiogenic in nature and hence came in to the hospital. Patient states the pain was self limiting. Denies any exertion with activity. Denies any exertion with movement of his shoulders or deep breathing. Patient is apparently able to walk about a mile without any difficulty in breathing or chest pain. In the ER EKG did not reveal ST-T wave changes. She does not have a history of CAD. Patient does have a family history that is consistent with the coronary disease. Remote smoking history. Currently states that his pain is noted with deep breathing. 07/16/16 No new overnight events Denies further episodes No cp, SANDRA, n/v, Abdominal pain reported. 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 07/18/16 Denies cp , sandra, abdominal pain, groin pain or numbness in his right low 07/19/16 No new overnight events denies cp, sandra, abdominal pain. - Constitutional General appearance: Present: average body habitus - EENT Eyes: Present: PERRLA - Neck Neck: Present: normal ROM - Respiratory Respiratory: bilateral: CTA, negative: rales, rhonchi, wheezing - Cardiovascular Rhythm: regular Heart sounds: normal: S1, S2 - Gastrointestinal General gastrointestinal: Present: normal bowel sounds, soft. Absent: distended , tenderness - Integumentary Integumentary: Present: normal - Neurologic Neurologic: Present: CNII-XII intact. Absent: focal deficits - Musculoskeletal Musculoskeletal: Present: gait normal, strength equal bilaterally - Psychiatric Psychiatric: Present: A&O x's 3, appropriate affect - Labs CBC & Chem 7: Assessment and Plan Plan: #1 CAD with PCI to the RCA #2 history of hypertension #3 remote history of smoking #4 dyslipidemia #5 history of stroke Follow up with Dr Henry. Medication compliance restrictions discussed. Plan - Discharge Summary New Discharge Prescriptions: Aspirin 81 mg PO DAILY #30 chew Atorvastatin [Lipitor] 40 mg PO HS #30 tab Metoprolol Tartrate [Lopressor] 25 mg PO BID #60 tab Nitroglycerin Sl Tabs [Nitrostat] 0.4 mg SUBLINGUAL Q5M PRN #25 tab PRN Reason: Chest Pain Ticagrelor [Brilinta] 90 mg PO BID #60 tab Discharge Medication List Enalapril [Vasotec] 10 mg PO DAILY 09/26/13 [History] Metoclopramide [Reglan] 5 mg PO TID 09/26/13 [History] Melatonin 10 mg PO HS 07/15/16 [History] Vit C/E/Zn/Coppr/Lutein/Zeaxan [Preservision Areds 2 Softgel] 2 cap PO DAILY 12/24 [History] Aspirin 81 mg PO DAILY #30 chew 07/19/16 [Rx] Atorvastatin [Lipitor] 40 mg PO HS #30 tab 07/19/16 [Rx] Metoprolol Tartrate [Lopressor] 25 mg PO BID #60 tab 07/19/16 [Rx] Nitroglycerin Sl Tabs [Nitrostat] 0.4 mg SUBLINGUAL Q5M PRN #25 tab 07/19/16 [Rx ] Ticagrelor [Brilinta] 90 mg PO BID #60 tab 07/19/16 [Rx] Follow up Appointment(s)/Referral(s): Sarbjit Henry MD [STAFF PHYSICIAN] - 1 Week (Please make appt when office open ) Armand Bond MD [Primary Care Provider] - 1-2 days (Please make appt when office open ) Rolly Mitchell MD [STAFF PHYSICIAN] - 1 Week (Please make appt when office open ) Patient Instructions/Handouts: After Heart Catheterization - Clinical Practitioner Activity/Diet/Wound Care/Special Instructions: Do not drive until cardiology states it is acceptable. Discharge Disposition: HOME SELF-CARE
--- NOTE | 2016-07-19 19:28 | P.PN ---
Subjective This patient is status post stent to the RCA is ambulating in the hallway denies any chest pain or shortness of breath. Objective - Vital Signs Vital signs: Vital Signs Temp 97.1 F L 07/19/16 08:00 Pulse 62 07/19/16 11:25 Resp 16 07/19/16 11:25 BP 112/62 07/19/16 11:25 Pulse Ox 96 07/19/16 11:25 Intake & Output 07/19/16 07/19/16 07/20/16 06:59 18:59 06:59 Intake Total Balance Weight Intake: Oral Other: Voiding Method # Voids 2 - Exam Patient is comfortable in no distress. Heart first and second heart sounds are normal. Lungs are clinically clear to auscultation and percussion. - Labs CBC & Chem 7: 07/18/16 06:39 07/18/16 06:39 Assessment and Plan Plan: Patient is going to be discharged home today. He will be seen in the office in 2 weeks. We will consider stent to the LAD in 3-4 weeks.
[2016-07-19] MEDS ORDERED: TICAGRELOR 90 MG TAB PO SCH (21:00)
== END 2016-07-19 18:46 | disposition home or self-care (01) | DRG 247 ==
LOC: EC 08:19 → 3OBS 10:22 → OBSVTOIN 07-17 15:09 → 6SEL 07-17 17:45
PROVIDERS: ADMIT Internal Medicine; ATTEND Internal Medicine
PROC: B2151ZZ Fluoroscopy of Left Heart using Low Osmolar Contrast (ICD-10-PCS; principal; 2016-07-17 11:00)
PROC: B2111ZZ Fluoroscopy of Multiple Coronary Arteries using Low Osmolar Contrast (ICD-10-PCS; principal; 2016-07-17 11:00)
PROC: 4A023N7 Measurement of Cardiac Sampling and Pressure, Left Heart, Percutaneous Approach (ICD-10-PCS; principal; 2016-07-17 11:00)
PROC: 027034Z Dilation of Coronary Artery, One Artery with Drug-eluting Intraluminal Device, Percutaneous Approach (ICD-10-PCS; 2016-07-17 11:00)
DX: I25.110 Atherosclerotic heart disease of native coronary artery with unstable angina pectoris (principal); I10 Essential (primary) hypertension; E78.5 Hyperlipidemia, unspecified; K21.9 Gastro-esophageal reflux disease without esophagitis; N40.0 Benign prostatic hyperplasia without lower urinary tract symptoms; Z96.1 Presence of intraocular lens; Z82.49 Family history of ischemic heart disease and other diseases of the circulatory system; Z85.828 Personal history of other malignant neoplasm of skin; Z86.73 Personal history of transient ischemic attack (TIA), and cerebral infarction without residual deficits; Z87.891 Personal history of nicotine dependence; Z98.41 Cataract extraction status, right eye; Z98.42 Cataract extraction status, left eye; Z79.899 Other long term (current) drug therapy
CPT/HCPCS: 36415; 71020; 80048; 80053; 80061; 82550; 82553; 83735; 83880; 84484; 85025; 85049; 85610; 85730; 93005; 93306; 93458; 93571; 96365; 96366; 96374; 96376; 99291

== ENCOUNTER 2016-08-13 06:56 | Day surgery (SDC) | payer MEDICARE, BC ==
[~2016-08-13 06:56] MED LIST: ALPRAZolam 0.25 MG TAB PO PRN; ALPRAZolam 0.5 MG TAB PO PRN; ASPIRIN 325 MG TAB PO STA; ATORVASTATIN 80 MG TAB PO STA; NITROGLYCERIN SL TABS 0.4 MG TAB SUBLINGUAL PRN; SODIUM CHLORIDE 0.9% 1,000 ML in EMPTY BAG 1 BAG IV ONE
[2016-08-13] MEDS ORDERED: diphenhydrAMINE 50 MG/ML 1 ML VIAL IVP ONE (09:07)
[2016-08-13] MEDS ORDERED: MIDAZOLAM 2 MG/2 ML VIAL IV ONE (09:08)
[2016-08-13] MEDS ORDERED: LIDOCAINE 2% INJ 20 MG/ML SQ ONE (09:10)
[2016-08-13] MEDS ORDERED: BIVALIRUDIN 250 MG in SODIUM CHLORIDE 0.9% 50 ML IV ONE (09:15)
[2016-08-13] MEDS: NITROGLYCERIN 1000MCG/10ML SYRINGE INTRACORON ONE ×2 (09:20→09:31)
[2016-08-13] MEDS ORDERED: IODIXANOL 320 MG/ML 100 ML INTRAARTER ONE (09:36)
[2016-08-13] MEDS ORDERED: NITROGLYCERIN SL TABS 0.4 MG TAB SUBLINGUAL PRN ×2 (10:02→10:03)
[2016-08-13] MEDS ORDERED: MAG HYDROX/AL HYDROX/SIMETH 30 ML CUP PO PRN (10:03)
[2016-08-13] MEDS ORDERED: RX INFO: IV CONTRAST WAS GIVEN 1 EACH MISC MISCELLANE PRN (10:03)
[2016-08-13] MEDS ORDERED: ZOLPIDEM 5 MG TAB PO PRN (10:03)
[2016-08-13] MEDS ORDERED: ATROPINE SULFATE 0.1 MG/ML 10ML SYRINGE IV PRN (10:03)
--- NOTE | 2016-08-13 10:09 | P.PCN ---
Date of Procedure: 08/13/16 Operative Findings: PERCUTANEOUS CORONARY INTERVENTION Performing physician Sarbjit Henry M.D., operations supervisor 2nd shift Procedure performed #1 successful stenting of the mid LAD using 2.75 x 32 mm sinus ZEESHAN with a good angiographic results #2 selective right common femoral artery angiogram. #3 successful closing the right groin using the Perclose device. Indication This is a pleasant 76-year-old gentleman who presented to the hospital a few weeks ago with a chest discomfort and underwent a heart catheterization which showed severe two-vessel coronary artery disease. As a matter of fact it showed severe disease involving the RCA and intermediate disease involving the LAD. The patient underwent successful stenting of the RCA and fractional flow reserve FFR of the LAD which came in to be ischemic. He was brought today to undergo stenting of the LAD. Approach Right common femoral artery Complication None Level of sedation Moderate with a sedation length of about 45 minutes Procedure description After obtaining an informed consent the patient was brought to the cardiac label printer. The right common femoral artery was cannulated using micropuncture technique, the micropuncture wire passed easily then I placed 6-Indonesian sheath in the right common femoral artery. Subsequently anticoagulation was initiated using Angiomax. Then I did engage the left main using an XB 35 LAD guide. After that I did wire the LAD using a whisper wire. Then I did balloon angioplasty of the mid LAD using 2.5 x 15 mm balloon which was inflated under 12 jemma. Subsequently I deployed 2.75 x 32 mm Xience ZEESHAN where the stent was positioned under fluoroscopy guidance and deployed under its nominal pressure. The following angiogram showed good angiographic results. The procedure was completed without any complication. By the end of the procedure I did selective right common femoral artery angiogram before I closed the groin using the Perclose device. Postprocedure management #1 dual antiplatelet therapy #2 risk factors modification #3 follow-up with the patient
[2016-08-13] MEDS ORDERED: SODIUM CHLORIDE 0.9% 1,000 ML IV SCH (10:15)
[2016-08-13 11:54] VITALS: BMI 28.8
[2016-08-13] MEDS ORDERED: METOCLOPRAMIDE 5 MG TAB PO SCH ×2 (12:30→17:00)
[2016-08-13] MEDS: TICAGRELOR 90 MG TAB PO SCH (17:33)
[2016-08-13] MEDS: METOPROLOL TARTRATE 25 MG TAB PO SCH (17:33)
[2016-08-13] MEDS ORDERED: METOPROLOL TARTRATE 25 MG TAB PO SCH (21:00)
[2016-08-13] MEDS ORDERED: TICAGRELOR 90 MG TAB PO SCH (21:00)
[2016-08-13] MEDS ORDERED: MELATONIN 5 MG TABLET PO SCH (21:00)
[2016-08-13] MEDS ORDERED: ATORVASTATIN 40 MG TAB PO SCH (21:00)
[2016-08-14 03:25] VITALS: RESP 16
[2016-08-14] MEDS: METOPROLOL TARTRATE 25 MG TAB PO SCH (06:25)
[2016-08-14] MEDS: TICAGRELOR 90 MG TAB PO SCH (06:26)
[2016-08-14 06:32] LABS: Basophils # (A) 0.1 k/uL (0-0.2); Basophils % (A) 1 %; CH 31.1; CHCM 33.6; Eosinophils # (A) 0.6 k/uL (0-0.7); Eosinophils % (A) 7 %; HCT 38.6 % (39.0-53.0); HDW 2.66; HGB 13.1 gm/dL (13.0-17.5); Luc # (Auto) 0.17; Luc % (Auto) 2; Lymphocytes # (A) 2.1 k/uL (1.0-4.8); Lymphocytes % (A) 26 %; MCH 31.6 pg (25.0-35.0); MCHC 33.9 g/dL (31.0-37.0); MCV 93.1 fL (80.0-100.0); Mean Platelet Volume 6.6; Monocytes # (A) 0.7 k/uL (0-1.0); Monocytes % (A) 8 %; Neutrophils # (A) 4.5 k/uL (1.3-7.7); Neutrophils % (A) 56 %; RBC 4.15 m/uL (4.30-5.90); RDW 13.2 % (11.5-15.5); WBC 8.1 k/uL (3.8-10.6); WBC (Perox) 8.13
[2016-08-14 06:50] LABS: Anion Gap 9 mmol/L; Blood Urea Nitrogen 17 mg/dL (9-20); Calcium 8.7 mg/dL (8.4-10.2); Carbon Dioxide 24 mmol/L (22-30); Chloride 108 mmol/L (98-107); Glucose 82 mg/dL (74-99); Non-African American GFR(MDRD) 55 (>60 ml/min/1.73 sqM); Potassium 4.4 mmol/L (3.5-5.1); Sodium 141 mmol/L (137-145)
[2016-08-14] MEDS ORDERED: LISINOPRIL 20 MG TAB PO SCH (09:00)
[2016-08-14] MEDS ORDERED: METOCLOPRAMIDE 10 MG TAB PO SCH (09:00)
[2016-08-14] MEDS ORDERED: VIT A,C & E-LUTEIN-MINERALS 1 EACH TAB PO SCH (09:00)
[2016-08-14] MEDS ORDERED: ASPIRIN 81 MG CHEW PO SCH (09:00)
[2016-08-14 11:45] VITALS: BP 136/71; PULSE 55; TEMP 97
--- NOTE | 2016-08-15 08:45 | DS ---
DATE OF ADMISSION: 08/13/2016 DATE OF DISCHARGE: 08/14/2016 BRIEF HISTORY: This is a pleasant 76-year-old gentleman who was admitted to the hospital yesterday and underwent successful stenting of the mid LAD with a good angiographic result and without any complication. The procedure was performed from the right groin. It is soft and nontender and without any bruises. The patient is going to be discharged home on dual antiplatelet therapy including aspirin and Brilinta along with metoprolol and statin. I will follow up with the patient in a week in the office.
== END 2016-08-14 12:40 | disposition home or self-care (01) ==
LOC: CATHCVL 06:56 → 6SEL 09:56 → CATHCVL 08-14 12:40
PROVIDERS: ATTEND Internal Medicine Interventional Cardiology
DX: I25.10 Atherosclerotic heart disease of native coronary artery without angina pectoris (principal); I10 Essential (primary) hypertension; Z87.891 Personal history of nicotine dependence; Z82.49 Family history of ischemic heart disease and other diseases of the circulatory system; E78.2 Mixed hyperlipidemia; Z95.5 Presence of coronary angioplasty implant and graft; Z79.02 Long term (current) use of antithrombotics/antiplatelets; Z79.82 Long term (current) use of aspirin; Z79.899 Other long term (current) drug therapy
CPT/HCPCS: 80048; 85025; 99152; 99153 ×2; C9600; C1769 ×4; C1725; C1887; C1894; C1874; C1760; J2001; J2250; J1200; Q9967; J0583

== ENCOUNTER → 2017-10-08 | Outpatient (CLI) | payer MEDICARE, BC ==
[2017-10-08 10:07] LABS: Albumin 4.2 g/dL (3.5-5.0); Calcium 9.1 mg/dL (8.4-10.2); Total Bilirubin 0.9 mg/dL (0.2-1.3); Total Protein 7.2 g/dL (6.3-8.2)
[2017-10-08 10:13] LABS: Potassium 5.1 mmol/L (3.5-5.1)
== END | disposition home or self-care (01) ==
LOC: LABWHC1 09:32
PROVIDERS: ATTEND Nurse Practitioner Family
DX: E78.4 Other hyperlipidemia (principal); I10 Essential (primary) hypertension
CPT/HCPCS: 36415; 80053; 80061

== ENCOUNTER → 2018-01-07 | Outpatient (CLI) | payer MEDICARE, BC ==
[2018-01-07 09:55] LABS: Basophils # (A) 0.1 k/uL (0-0.2); Basophils % (A) 1 %; Eosinophils # (A) 0.6 k/uL (0-0.7); Eosinophils % (A) 8 %; HCT 45.4 % (39.0-53.0); HGB 14.3 gm/dL (13.0-17.5); Lymphocytes # (A) 2.1 k/uL (1.0-4.8); Lymphocytes % (A) 27 %; MCH 29.2 pg (25.0-35.0); MCHC 31.5 g/dL (31.0-37.0); MCV 92.5 fL (80.0-100.0); Mean Platelet Volume 6.6; Monocytes # (A) 0.5 k/uL (0-1.0); Monocytes % (A) 7 %; Neutrophils # (A) 4.2 k/uL (1.3-7.7); Neutrophils % (A) 54 %; Platelet Count 232 k/uL (150-450); RBC 4.91 m/uL (4.30-5.90); RDW 13.3 % (11.5-15.5); WBC 7.7 k/uL (3.8-10.6)
[2018-01-07 10:12] LABS: Potassium 5.1 mmol/L (3.5-5.1)
[2018-01-07 10:13] LABS: Calcium 9.4 mg/dL (8.4-10.2); Magnesium 2.2 mg/dL (1.6-2.3)
== END | disposition home or self-care (01) ==
LOC: LABWHC1 09:14
PROVIDERS: ATTEND Internal Medicine Nephrology
DX: I12.9 Hypertensive chronic kidney disease with stage 1 through stage 4 chronic kidney disease, or unspecified chronic kidney disease (principal); N18.3 Chronic kidney disease, stage 3 (moderate); E55.9 Vitamin D deficiency, unspecified
CPT/HCPCS: 36415; 80048; 82043; 82306; 82570; 83735; 85025

== ENCOUNTER → 2018-07-18 | Outpatient (CLI) | payer MEDICARE, BC | LOC: LABWHC1 13:34 | PROVIDERS: ATTEND Orthopaedic Surgery | DX: B99.9 Unspecified infectious disease (principal) | CPT/HCPCS: 36415; 85652; 86140 ==

== ENCOUNTER → 2018-07-22 | Outpatient (CLI) | payer MEDICARE, BC ==
--- NOTE | 2018-07-22 09:44 | CT ---
EXAMINATION TYPE: CT knee LT wo con DATE OF EXAM: 07/22/2018 COMPARISON: None HISTORY: Left TKA pain and instability CT DLP: 398 mGycm Automated exposure control for dose reduction was used. FINDINGS: There is a left knee arthroplasty present and maintains normal anatomic alignment. No periprosthetic loosening is seen as there is no surrounding lucency. Protuberant superior pole patellar osteophytes and heterotopic ossification are noted. There is no [place] bone fracture identified. Extensive athero sclerosis is seen of the femoral artery and its branches. Overall the extensor mechanism appears intact although slightly limited on CT. A very small suprapate llar joint effusion is evident. IMPRESSION: LEFT KNEE ARTHROPLASTY DISPLAYS APPROPRIATE ANATOMIC ALIGNMENT WITHOUT EVIDENCE OF LOOSENING. NO HARD ELLISON FRACTURE OR CHEFORNAK BONE FRACTURE. EXTENSOR MECHANISM IS GROSSLY INTACT.
--- NOTE | 2018-07-22 13:53 | NM ---
EXAMINATION TYPE: NM bone 3 phase DATE OF EXAM: 07/22/2018 COMPARISON: CT of the left knee dated 07/22/2018 x-rays of the left knee dated 09/26/2013. HISTORY: Left total knee pain and instability. Triple phase bone scintigraphy was performed following the injection of 25.9 mCi Tc 99m MDP. Immedia te images and 5 hours post injection images acquired. FINDINGS: There is symmetric flow and blood pool to the knees. Photopenia is seen of the left knee j oint from the known prosthesis. Delayed imaging does demonstrate focal radiotracer uptake surrounding both the tibial and femoral components of the left knee. The whole body bone scan demonstrates only symmetric degenerative uptake at the glenohumeral joints, chromic clavicular joints, sternal clavicular joints, sacroiliac joints, elbows, wrists, and ankles. No suspicious uptake is seen. IMPRESSION: Focal radiotracer uptake on delayed images only surrounding the femoral and tibial compon ent of the left knee arthroplasty suggesting aseptic loosening.
== END | disposition home or self-care (01) ==
LOC: RADNMMAIN 07:18
PROVIDERS: ATTEND Orthopaedic Surgery
DX: T84.023A Instability of internal left knee prosthesis, initial encounter (principal); Z96.652 Presence of left artificial knee joint
CPT/HCPCS: 73700; 78315; A9503

== ENCOUNTER → 2019-01-05 | Outpatient (CLI) | payer MEDICARE, BC ==
[2019-01-05 14:02] LABS: Basophils # (A) 0.1 k/uL (0-0.2); Basophils % (A) 1 %; Eosinophils # (A) 0.5 k/uL (0-0.7); Eosinophils % (A) 5 %; HCT 40.6 % (39.0-53.0); HGB 13.2 gm/dL (13.0-17.5); Lymphocytes % (A) 33 %; MCHC 32.6 g/dL (31.0-37.0); MCV 89.1 fL (80.0-100.0); Mean Platelet Volume 6.8; Monocytes # (A) 0.8 k/uL (0-1.0); Monocytes % (A) 9 %; Neutrophils # (A) 4.4 k/uL (1.3-7.7); Neutrophils % (A) 49 %; Platelet Count 236 k/uL (150-450); RBC 4.55 m/uL (4.30-5.90); RDW 13.7 % (11.5-15.5); WBC 9.1 k/uL (3.8-10.6)
[2019-01-05 18:40] LABS: African American GFR (CKD) 61.4 (60.0-200.0); BUN/Creat Ratio 13.85 Ratio (12.00-20.00); Calcium 9.1 mg/dL (8.7-10.3); Magnesium 1.8 mg/dL (1.5-2.4); Potassium 4.4 mmol/L (3.5-5.5)
== END | disposition home or self-care (01) ==
LOC: LABWHC1 13:36
PROVIDERS: ATTEND Internal Medicine Nephrology
DX: I12.9 Hypertensive chronic kidney disease with stage 1 through stage 4 chronic kidney disease, or unspecified chronic kidney disease (principal); N18.3 Chronic kidney disease, stage 3 (moderate); E55.9 Vitamin D deficiency, unspecified
CPT/HCPCS: 36415; 80048; 82043; 82306; 82570; 83735; 85025

== ENCOUNTER → 2019-12-13 | Outpatient (CLI) | payer MEDICARE, BC ==
--- NOTE | 2019-12-13 11:51 | XR ---
EXAMINATION TYPE: XR lumbosacral spine min 4V DATE OF EXAM: 12/13/2019 CLINICAL HISTORY: Lumbago with sciatica. Low back pain for years into left hip per patient. TECHNIQUE: Frontal, lateral, and oblique images of the lumbar spine are obtained. COMPARISON: None FINDINGS: There are 5 lumbar type vertebral bodies identified. The lumbar spine shows satisfactory alignment without evidence of acute fracture or dislocation. Vertebral body heights are within normal limits. Mild to moderate disc space narrowing and anterior spurring L2-L3 level. The oblique images appear within normal limits. Additional mild multilevel anterior spurring. Vascular calcification o verlying abdominal aorta extending into the iliac branch vessels. IMPRESSION: As above.
== END | disposition home or self-care (01) ==
LOC: RADXRMAIN 11:27
PROVIDERS: ATTEND Family Medicine
DX: M48.07 Spinal stenosis, lumbosacral region (principal); G89.29 Other chronic pain
CPT/HCPCS: 72110

== ENCOUNTER → 2020-01-25 | Outpatient (CLI) | payer MEDICARE, BC ==
[2020-01-25 09:54] LABS: Basophils # (A) 0.1 k/uL (0-0.2); Basophils % (A) 1 %; Eosinophils # (A) 0.2 k/uL (0-0.7); Eosinophils % (A) 1 %; HCT 45.4 % (39.0-53.0); HGB 14.5 gm/dL (13.0-17.5); Lymphocytes # (A) 2.4 k/uL (1.0-4.8); Lymphocytes % (A) 19 %; MCH 29.5 pg (25.0-35.0); Mean Platelet Volume 6.5; Monocytes # (A) 0.9 k/uL (0-1.0); Monocytes % (A) 8 %; Neutrophils # (A) 8.6 k/uL (1.3-7.7); Neutrophils % (A) 70 %; Platelet Count 214 k/uL (150-450); RBC 4.93 m/uL (4.30-5.90); RDW 13.1 % (11.5-15.5); WBC 12.4 k/uL (3.8-10.6)
[2020-01-25 16:30] LABS: Anion Gap 6.9 mmol/L (4.00-12.00); BUN/Creat Ratio 12.31 Ratio (12.00-20.00); Calcium 9.2 mg/dL (8.7-10.3); Carbon Dioxide 27.1 mmol/L (21.6-31.8); Non-African American GFR(CKD) 52.6 (60.0-200.0); Potassium 4.8 mmol/L (3.5-5.5)
[2020-01-25 18:22] LABS: Urine Creatinine 132.1 mg/dL
== END | disposition home or self-care (01) ==
LOC: LABWHC1 08:26
PROVIDERS: ATTEND Internal Medicine Nephrology
DX: I12.9 Hypertensive chronic kidney disease with stage 1 through stage 4 chronic kidney disease, or unspecified chronic kidney disease (principal); N18.3 Chronic kidney disease, stage 3 (moderate); E55.9 Vitamin D deficiency, unspecified
CPT/HCPCS: 36415; 80048; 82043; 82306; 82570; 83735; 85025

== ENCOUNTER → 2020-01-31 | Outpatient (CLI) | payer MEDICARE, BC ==
--- NOTE | 2020-01-31 10:30 | MR ---
EXAMINATION TYPE: MR lumbar spine wo con DATE OF EXAM: 01/31/2020 COMPARISON: None HISTORY: Low back pain, disc degeneration, spondylosis TECHNIQUE: T1 and T2 axial and sagittal images of the lumbar spine are submitted. FINDINGS: There is no abnormal signal seen within the visualized spinal cord or paraspinal soft tissu es. Nonspecific thickening of the left adrenal gland. Multilevel disc desiccation and degenerative di sc disease most marked L2-3 and L4-L5. At L1-2 there is there is facet arthropathy. No disc herniation or canal stenosis. No foraminal encro achment At L2-3 there is degenerative disc disease. There is a Schmorl's node. Broad-based disc bulging or br oad-based protrusion with mild effacement of thecal sac. Facet arthropathy and foraminal encroachment . Borderline to mild canal stenosis. At L3-4 there is diffuse disc bulging and facet arthropathy and ligamentum flavum hypertrophy. Neural foramina remain patent. No Canal stenosis. At L4-5 there is broad-based disc bulging with advanced facet arthropathy and ligamentum flavum hyper trophy results in mild canal stenosis and bilateral foraminal encroachment. At L5-S1 there is advanced facet arthropathy. No disc herniation or canal stenosis. Mild circumferent ial disc bulging. Neural foramina remain patent. IMPRESSION: 1. Multilevel degenerative disc disease and disc bulging. Broad-based disc bulging with hypertrophic changes L4-L5 results in mild canal stenosis and mild bilateral foraminal 2. Broad-based disc bulging or protrusion L2-L3 results in flattening of the thecal sac and borderlin e to mild canal stenosis.
== END | disposition home or self-care (01) ==
LOC: RADMRIMAIN 08:49
PROVIDERS: ATTEND Physical Medicine & Rehabilitation
DX: M48.061 Spinal stenosis, lumbar region without neurogenic claudication (principal); M51.26 Other intervertebral disc displacement, lumbar region; M51.36 Other intervertebral disc degeneration, lumbar region; M47.816 Spondylosis without myelopathy or radiculopathy, lumbar region; M79.18 Myalgia, other site
CPT/HCPCS: 72148

== ENCOUNTER → 2020-06-12 | Outpatient (CLI) | payer MEDICARE, BC ==
[2020-06-12 08:21] VITALS: BP 149/84; PULSE 62; RESP 16; TEMP 97.7
--- NOTE | 2020-06-12 08:31 | P.PAINCN ---
History of Present Illness - Reason for Consult Consult date: 06/12/20 - History of Present Illness 80 years old male with a chronic history of severe low back pain, started more than 15 years ago, the pain is constant localized in the low back area, patient had diagnostic medial branch block lumbar area done at the [facility] , at L2, L3, L4, L5, bilaterally ,and patient had more than 80% improvement of his low back pain, after each block, he reported his pain was 9/10 before the block dropped to 1/10 after the block, and he gets similar results after the second diagnostic medial branch block ,the pain relief was for short-term, patient denies any motor or sensory deficit he denies any fever or night sweats and he denies any angina bowel movement or urination Past Medical History Past Medical History: Cancer, CVA/TIA, GERD/Reflux, Hyperlipidemia, Hypertension, Osteoarthritis (OA), Prostate Disorder Additional Past Medical History / Comment(s): 2013 TIA, prostate enlargement with TURP but is starting to have issues again, skin cancer with removals, DJD, arthtritis some of his fingers. History of Any Multi-Drug Resistant Organisms: None Reported Past Surgical History: Appendectomy, Heart Catheterization With Stent, Joint Replacement, Orthopedic Surgery, Prostate Surgery Additional Past Surgical History / Comment(s): Total L knee arthroplasty, teeth extractions, bilateral cataract removal with lens implants, bilateral blepharoplasty, TURP, colonoscopy, skin cancer removals. Past Anesthesia/Blood Transfusion Reactions: Previous Problems w/ Anesthesia Additional Past Anesthesia/Blood Transfusion Reaction / Comm: Pt states that after spinal anesthesia, he had severe pain down both legs for a couple days. Date of Last Stent Placement:: July 2016 Past Psychological History: Depression Additional Psychological History / Comment(s): Pt resides with his spouse. He in independent. Pt is a [employer] . 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 Smoking Status: Former smoker Past Alcohol Use History: None Reported Additional Past Alcohol Use History / Comment(s): Pt started smoking in 1960 and quit in 1990. Past Drug Use History: None Reported - Past Family History Father Additional Family Medical History / Comment(s): Father was pretty healthy. He in his 80's from heart disease. Mother Family Medical History: Cancer Additional Family Medical History / Comment(s): Mother had several different types of cancer. Medications and Allergies Home Medications Medication Instructions Recorded Confirmed Type Enalapril [Vasotec] 10 mg PO DAILY 09/26/13 06/11/20 History Metoclopramide [Reglan] 5 mg PO TID 09/26/13 06/11/20 History Vit C/E/Zn/Coppr/Lutein/Zeaxan 2 cap PO DAILY 07/15/16 06/11/20 History [Preservision Areds 2 Softgel] Aspirin 81 mg PO DAILY #30 chew 07/19/16 06/11/20 Rx Atorvastatin [Lipitor] 40 mg PO HS #30 tab 07/19/16 06/11/20 Rx Metoprolol Tartrate [Lopressor] 25 mg PO BID #60 tab 07/19/16 06/11/20 Rx Nitroglycerin Sl Tabs [Nitrostat] 0.4 mg SUBLINGUAL Q5M PRN #25 tab 07/19/16 06/11/20 Rx Ticagrelor [Brilinta] 90 mg PO BID #60 tab 07/19/16 06/11/20 Rx Cholecalciferol [Vitamin D3 (25 50 mcg PO DAILY 06/11/20 06/11/20 History Mcg = 1000 Iu)] Cyanocobalamin (Vitamin B-12) 5,000 mcg PO DAILY 06/11/20 06/11/20 History [Vitamin B-12] Allergies Allergy/AdvReac Type Severity Reaction Status Date / Time No Known Allergies Allergy Verified 06/11/20 12:40 Physical Exam Vitals: Vital Signs Temp Pulse Resp BP Pulse Ox 06/12/20 08:11 97.7 F 62 16 149/84 99 Physical Examinations : -Constitutiona : Cooperative , not in acute distress . -HEENT : nech : supple , no Lymphadenopathy , normal thyroid size . : eyes : no ptosis , no icterus, no photopho liliya . - neurologic : Cranial nerve II to XII intact , no focal neurological deffecit . -psychatric : alert , oriented X 3 , appropriate affect , intact judgment and insight . -Lymphatic : no Lymphadenopathy . - musculoskeltal : Lumber spine moter stegnth lower extremities ,thigh and legs 5/5 Right side , 5/5 Left side deep tendon reflexes : normal Knee Jerk , normal ankle Jerk lumber facet Loading Test =positive Right , posiutive Left Range of motion of the lumbar spine Flexion 30 degrees, extension 10 degrees strait leg raising test = negative bilaterally Fabere test= negative bilaterally tenderness over the Sacroiliac joint on the Right , and Left sides Gaenslen test= positive right ,and positive left . Seated flexion test= positive right ,and positive Left . Results Comments: MRI of the lumbar spine multilevel lumbar bulging disc disease and multilevel lumbar facet arthropathy Assessment and Plan Plan: Assessment and plan=1-Lumbar spondylosis with lumbar facet arthropathy without myelopathy. 2-lumbar degenerative disc disease. Patient had positive diagnostic medial branch block x2 , he had more than 80% improvement of his low back pain Patient will be in good candidate to have RFA of the medial branch lumbar area at L2, L3, L4, L5, bilaterally Time with Patient: Greater than 30 PQRS Measure Charge Sheet Measure #130: Documentation of Current Meds in Medical Chart: Patient's medications documented in chart Measure #226: Tobacco Use: Screen & Cessation Intervention: Pt not a tobacco user Measure #111: Pneumonia Vaccination: Pneumococcal vaccine NOT administered or p reviously given Measure #47: Advance Care Plan: Advance care planning discussed & documented, pt chose/unable to give Measure #412: Opioid Treatment Agreement: No documentation of signed opioid treatment agreement Measure #408: Opioid Therapy Follow-up Evaluation: Patient had NO f/u eval minimum every 3 months during opioid therapy Measure #317: Preventitive Care & Scrn High Bld Press & F/U: Pre-hypertensive or hypertensive BP documented, pt will f/u with PCP Measure #128: Body Mass Index (BMI) Screening & Follow-up: BMI documented ABOVE normal parameters - f/u documented Measure #131: Pain Assessment & Follow-up: Pain positive & plan documented, Follow-up scheduled Measure #431: Unhealthy Alcohol Use Preventative Care & Scrn: Patient not identified as an unhealthy alcohol user PQRS Narrative: Smoking Status Former smoker Blood Pressure 149/84 Pain Intensity [Lower Back] 5 Scale Used Numeric (1 - 10) Hx Alcohol Use (MH) No Home Medications: Ambulatory Orders Enalapril [Vasotec] 10 mg PO DAILY 09/26/13 Metoclopramide [Reglan] 5 mg PO TID 09/26/13 Vit C/E/Zn/Coppr/Lutein/Zeaxan [Preservision Areds 2 Softgel] 2 cap PO DAILY 07/15/16 Aspirin 81 mg PO DAILY #30 chew 07/19/16 Atorvastatin [Lipitor] 40 mg PO HS #30 tab 07/19/16 Metoprolol Tartrate [Lopressor] 25 mg PO BID #60 tab 07/19/16 Nitroglycerin Sl Tabs [Nitrostat] 0.4 mg SUBLINGUAL Q5M PRN #25 tab 07/19/16 Ticagrelor [Brilinta] 90 mg PO BID #60 tab 07/19/16 Cholecalciferol [Vitamin D3 (25 Mcg = 1000 Iu)] 50 mcg PO DAILY 06/11/20 Cyanocobalamin (Vitamin B-12) [Vitamin B-12] 5,000 mcg PO DAILY 06/11/20
== END | disposition home or self-care (01) ==
LOC: PNWHC3 07:52
PROVIDERS: ATTEND Specialist
DX: M51.36 Other intervertebral disc degeneration, lumbar region (principal); M47.816 Spondylosis without myelopathy or radiculopathy, lumbar region; Z87.891 Personal history of nicotine dependence; Z79.82 Long term (current) use of aspirin; Z79.899 Other long term (current) drug therapy; Z79.891 Long term (current) use of opiate analgesic
CPT/HCPCS: 99211

== ENCOUNTER 2020-07-05 08:19 | Day surgery (SDC) | payer MEDICARE, BC ==
[2020-07-02 09:53] VITALS: BMI 28.6
[~2020-07-05 08:19] MED LIST changes: -ALPRAZolam 0.25 MG TAB PO PRN; -ALPRAZolam 0.5 MG TAB PO PRN; -ASPIRIN 325 MG TAB PO STA; -ATORVASTATIN 80 MG TAB PO STA; +LACTATED RINGERS 1,000 ML IV SCH; -NITROGLYCERIN SL TABS 0.4 MG TAB SUBLINGUAL PRN; -SODIUM CHLORIDE 0.9% 1,000 ML in EMPTY BAG 1 BAG IV ONE
[2020-07-05 08:52] VITALS: RESP 16; TEMP 97
[2020-07-05] MEDS ORDERED: LIDOCAINE 1% (10MG/ML) FOR IV START INTRADERMA ONE (09:02)
[2020-07-05] MEDS ORDERED: MIDAZOLAM 2 MG/2 ML VIAL ONE (09:14)
[2020-07-05] MEDS ORDERED: fentaNYL (PF) 50 MCG/ML 2 ML AMP ONE (09:14)
[2020-07-05] MEDS ORDERED: LIDOCAINE 1% INJ 10MG/ML (20 ML MDV) ONE (09:14)
[2020-07-05] MEDS ORDERED: ROPIVACAINE 5MG/ML 20ML VIAL ONE (09:14)
--- NOTE | 2020-07-05 09:39 | P.PCN ---
Date of Procedure: 07/05/20 Description of Procedure: PREOPERATIVE DIAGNOSIS: Lumbar Facet Arthropathy without myelopathy POSTOPERATIVE DIAGNOSIS: Same PROCEDURES: Bilateral Radiofrequency thermocoagulation of L4-5, L5-S1 medial branches, with fluoroscopic guidance ANESTHESIA: IV sedation with versed and fentanyl and local infiltration with lidocaine 1% 10 ml Imaging: Fluoroscopy was used, images where saved to the medical record PROCEDURE INDICATION: The patient with low back pain secondary to lumbar facet arthropathy who had more than 50% relief of pain with previous diagnostic lumbar medial branch block with local anesthetic. PROCEDURE DESCRIPTION / TECHNIQUE: The patient was seen and identified in the preoperative area. Risks, benefits, complications, including but not limited to risk of infection, bleeding, allergic reactions to the medications and no complete pain relief, and alternatives were discussed with the patient, the patient agreed to proceed with the procedure and signed the consent. IV was started. Vital signs remained stable throughout the procedure. Patient was taken to the OR and time out was completed. The patient was placed in the prone position on the procedure table. The lumber area was prepped and draped in the usual sterile fashion. Vital signs were closely monitored during the procedure. IV sedation was used during the procedure to decrease patient anxiety. Using AP and then oblique fluoroscopy, the eye of the Christian dog corresponding to the connection between the superior and transverse articular processes of L4, L5, and sacral Ala were identified, marked, and localized with 1% lidocaine. Subsequently, a 20 -kx radiofrequency cannula with a 10-mm active tip was advanced guided by fluoroscopy to the junction of the pedicle and transverse process of each identified level. Each site then underwent sensory testing at 50 Hz and 0 to 1 volt and motor testing at 2.5 Hz and 0 to 3 volt with local stimulation, no radicular symptoms sensed by the patient and no obvious motor stimulation noted. Thereafter the tested sites underwent radiofrequency thermocoagulation at 80 degrees celsius for 90 seconds after injecting 1 ml of PF lidocaine 1%. Then after the thermocoagulation was done, 1 ml of the block solution containing ropivaciane 0.5% was injected at the lesioned sites after negative aspiration of CSF and blood and with no paresthesias. Cannulas were retracted. At the end of the procedure, the skin was cleansed and bandages were applied. COMPLICATIONS: No acute complications. DISPOSITION / PLANS: The patient was placed in a supine position and transferred to the recovery area in a stable condition for observation and was discharged from the recovery room after meeting discharge criteria. Home discharge instructions given to the patient by the staff. The patient was reexamined prior to discharge. Patient will follow up as directed.
[2020-07-05] MEDS ORDERED: IV FLUID CONTINUATION 1,000 ML IV ONE (09:44)
--- NOTE | 2020-07-05 09:51 | FL ---
Fluoroscopy History: RAD FREQ FB LUMBAR BILAT. RAD FREQ FB LUM RAYA TECH TIME: FLUORO TIME: 8 SECONDS 6 IMAGES SCANNED
[2020-07-05 09:59] VITALS: BP 162/76; PULSE 61
== END 2020-07-05 10:18 | disposition home or self-care (01) ==
LOC: ORPAIN 08:19
PROVIDERS: ATTEND Hospitalist
DX: M47.817 Spondylosis without myelopathy or radiculopathy, lumbosacral region (principal)
CPT/HCPCS: 64635; 64636; J2250; J2001; J3010; J2795

== ENCOUNTER → 2020-07-29 | Outpatient (CLI) | payer MEDICARE, BC ==
[2020-07-29 10:48] VITALS: BP 150/73; PULSE 60; RESP 16; TEMP 97.5
--- NOTE | 2020-07-29 10:58 | P.PN ---
Subjective Progress Note Date: 07/29/20 This is a 80-year-old gentleman with history of low back pain status post lumbar medial branch RFA. The procedure give him at least 50% of pain relief and his pain is not as frequent as it used to be. He still has some pain on the left side of his spine especially when he works in his backyard. The patient takes Tylenol only for his pain. He is on low-dose aspirin. Patient denies new-onset weakness, bowel/bladder incontinence, or any other signs or symptoms of cauda equina syndrome. There are no signs of acute intoxication, and no indications of medication diversion or overuse. In addition to above, 13-point review of systems is also negative for chest pain, shortness of breath, changes in vision, changes in hearing, new onset weakness, abdominal pain, diarrhea, extreme fatigue, malaise, fever, skin changes, homicidal or suicidal ideation, or bowel or bladder incontinence. Vital Signs: Reviewed in EMR Gen: AAOx3, NAD HEENT: PERRLA,hearing grossly normal Pulm: resp unlabored Neck: supple, trachea midline Neuro exam of the lower extremities: Normal muscle strength bilaterally Straight leg raising test: José's test: Range of motion of the lumbar spine: Facet loading test: Tenderness in the paravertebral musculature: Positive on the left side of the lumbar spine Neuro: CN II-XII grossly intact, Imaging: Reviewed in EMR/chart Assessment: Lumbar spondylosis without myelopathy Myofascial pain Plan: 1. Explanation: Opioid and psychological risk scores were reviewed. Diagnoses, prognoses, and multiple treatment options including but not limited to physical therapy, interventional therapies, adjuvant medical therapies, narcotic medication therapies, and surgery were discussed with the patient and all questions were answered to the patient's satisfaction. 2. Opioid agreement: Signed with the patient and the patient is warned not to use opioids while driving or before driving and not to combine opioids with benzodiazepines or alcohol. 3. Counseling: The patient was counseled extensively on SMOKING CESSATION, BODY MASS INDEX, EXERCISE. Specifically, the patient was instructed regarding the importance of smoking cessation, obesity, and exercise in the context of both chronic pain and overall health. 4. Procedures: 1 at this point however he might benefit from trigger point injection in the future if his pain continues in the left side of his spine 5. Consultations: None 6. Investigations: None 7. Medications: None 8. Disposition: Return to clinic on an as-needed basis 9. Maps were reviewed and were appropriate. Objective - Vital Signs Vital signs: Vital Signs Temp 97.5 F L 07/29/20 10:43 Pulse 60 07/29/20 10:43 Resp 16 07/29/20 10:43 BP 150/73 07/29/20 10:43 Pulse Ox 99 07/29/20 10:43
== END ==
LOC: PNWHC3 10:33
PROVIDERS: ATTEND Anesthesiology
DX: M47.816 Spondylosis without myelopathy or radiculopathy, lumbar region (principal); M79.18 Myalgia, other site; Z87.891 Personal history of nicotine dependence
CPT/HCPCS: 99211

== ENCOUNTER → 2021-01-23 | Outpatient (CLI) | payer MEDICARE, BC ==
[2021-01-23 15:02] LABS: Basophils # (A) 0.07 X 10*3/uL (0.00-0.10); Eosinophils # (A) 0.28 X 10*3/uL (0.04-0.35); HCT 40.5 % (39.6-50.0); HGB 13.5 g/dL (13.0-17.0); Lymphocytes # (A) 1.85 X 10*3/uL (0.90-5.00); Lymphocytes % (A) 26.3 %; MCHC 33.3 g/dL (32.0-37.0); MCV 93.1 fL (80.0-97.0); Mean Platelet Volume 9.8 fL (9.5-12.2); Monocytes # (A) 0.87 X 10*3/uL (0.20-1.00); Monocytes % (A) 12.4 %; Neutrophils # (A) 3.95 X 10*3/uL (1.80-7.70); Platelet Count 205 X 10*3/uL (140-440); RBC 4.35 X 10*6/uL (4.40-5.60); WBC 7.04 X 10*3/uL (4.50-10.00)
[2021-01-24 02:44] LABS: African American GFR (CKD) 55.4 (60.0-200.0); Anion Gap 11.5 mmol/L (4.00-12.00); BUN/Creat Ratio 14.29 Ratio (12.00-20.00); Calcium 9.1 mg/dL (8.7-10.3); Carbon Dioxide 22.5 mmol/L (21.6-31.8); Magnesium 1.8 mg/dL (1.5-2.4); Non-African American GFR(CKD) 47.8 (60.0-200.0); Potassium 4.5 mmol/L (3.5-5.5)
== END | disposition home or self-care (01) ==
LOC: LABWHC1 10:54
PROVIDERS: ATTEND Internal Medicine Nephrology
DX: I12.9 Hypertensive chronic kidney disease with stage 1 through stage 4 chronic kidney disease, or unspecified chronic kidney disease (principal); N18.30 Chronic kidney disease, stage 3 unspecified; E55.9 Vitamin D deficiency, unspecified
CPT/HCPCS: 36415; 80048; 82043; 82306; 82570; 83735; 85025

== ENCOUNTER → 2022-02-03 | Outpatient (CLI) | payer MEDICARE, BC ==
[2022-02-03 13:00] LABS: Creatinine,Urine Random 139.1 mg/dL
[2022-02-03 14:17] LABS: Basophils # (A) 0.08 X 10*3/uL (0.00-0.10); Eosinophils # (A) 0.38 X 10*3/uL (0.04-0.35); Eosinophils % (A) 4.7 %; HCT 42.4 % (39.6-50.0); HGB 14.3 g/dL (13.0-17.0); Immature Grans, Automated 0.4 %; Lymphocytes # (A) 2.42 X 10*3/uL (0.90-5.00); Lymphocytes % (A) 30.1 %; MCHC 33.7 g/dL (32.0-37.0); Mean Platelet Volume 9.6 fL (9.5-12.2); Monocytes # (A) 0.85 X 10*3/uL (0.20-1.00); Monocytes % (A) 10.6 %; NRBC Per 100 WBC 0 /100 WBCS (0.0-0.0); Neutrophils # (A) 4.27 X 10*3/uL (1.80-7.70); Neutrophils % (A) 53.2 %; Platelet Count 186 X 10*3/uL (140-440); RBC 4.61 X 10*6/uL (4.40-5.60); RDW 12.9 % (11.5-14.5); WBC 8.03 X 10*3/uL (4.50-10.00)
[2022-02-03 15:19] LABS: African American GFR (CKD) 54.5 (60.0-200.0); Anion Gap 10.1 mmol/L (10.00-18.00); BUN/Creat Ratio 14.26 Ratio (12.00-20.00); Blood Urea Nitrogen 20.1 mg/dL (9.0-27.0); Calcium 9.3 mg/dL (8.7-10.3); Carbon Dioxide 27.9 mmol/L (20.0-27.5); Magnesium 2.2 mg/dL (1.5-2.4); Potassium 4.9 mmol/L (3.5-5.5)
== END | disposition home or self-care (01) ==
LOC: LABWHC1 07:51
PROVIDERS: ATTEND Internal Medicine Nephrology
DX: I12.9 Hypertensive chronic kidney disease with stage 1 through stage 4 chronic kidney disease, or unspecified chronic kidney disease (principal); E55.9 Vitamin D deficiency, unspecified; N18.30 Chronic kidney disease, stage 3 unspecified
CPT/HCPCS: 36415; 80048; 82306; 82570; 83735; 83970; 84156; 85025